=== PATIENT | male | born 1940 | race Caucasian/White ===

== ENCOUNTER → 2018-03-16 | Outpatient (CLI) | payer MEDICARE ==
--- NOTE | 2018-03-16 14:42 | US ---
EXAMINATION TYPE: US kidneys/renal and bladder DATE OF EXAM: 03/16/2018 COMPARISON: NONE CLINICAL HISTORY: N18.9 Chronic kidney disease, unspecified. EXAM MEASUREMENTS: Right Kidney: 13.1 x 5.4 x 5.3 cm Left Kidney: 13.5 x 5.2 x 4.9 cm Right Kidney: 2 cysts noted, largest measuring 1.0 x 1.0 x 1.1cm Left Kidney: ovoid shaped anechoic structure likely representing a renal sinus cyst measuring 1.7 x 1 .0 x 0.7cm Bladder: wnl There is bilateral cortical renal thinning and diminished cortical medullary differentiation. There i s no evidence for hydronephrosis at this point in time. No nephrolithiasis is seen. The urinary blad viri is anechoic. IMPRESSION: Sonographic sequela of medical renal disease with cortical renal thinning, right renal cyst and proba ble small left renal sinus cysts.
== END | disposition home or self-care (01) ==
LOC: RADUSWWP 14:04
PROVIDERS: ATTEND Family Medicine
DX: N28.1 Cyst of kidney, acquired (principal); N18.9 Chronic kidney disease, unspecified
CPT/HCPCS: 76770

== ENCOUNTER 2022-11-26 07:12 | Day surgery (SDC) | payer MEDICARE ==
[2022-11-21 16:10] VITALS: BMI 36.6
[~2022-11-26 07:12] MED LIST: ALPRAZolam 0.25 MG TAB PO PRN; ALPRAZolam 0.5 MG TAB PO PRN; ASPIRIN 325 MG TAB PO STA; NITROGLYCERIN SL TABS 0.4 MG TAB SUBLINGUAL PRN; SODIUM CHLORIDE 0.9% 1,000 ML in EMPTY BAG 1 BAG IV SCH
[2022-11-26 07:29] VITALS: RESP 18; TEMP 97.7
[2022-11-26 07:31] LABS: Glucose,Whole Blood 110 mg/dL (70-110)
[2022-11-26] MEDS ORDERED: VERAPAMIL 2.5 MG/ML 2 ML AMP ONE (09:14)
[2022-11-26] MEDS ORDERED: HEPARIN SODIUM 1,000 UN/ML (10ML VL) ONE (09:27)
[2022-11-26] MEDS ORDERED: MIDAZOLAM 2 MG/2 ML VIAL IV ONE (09:30)
[2022-11-26] MEDS ORDERED: LIDOCAINE 1% INJ 10MG/ML (5 ML VIAL-PF) SQ ONE (09:31)
[2022-11-26] MEDS ORDERED: fentaNYL (PF) 50 MCG/ML 2 ML AMP ONE (09:33)
[2022-11-26] MEDS ORDERED: VERAPAMIL SYRINGE (5 MG/10 ML) INTRAARTER ONE (09:33)
[2022-11-26] MEDS ORDERED: HEPARIN SODIUM 1,000 UN/ML (10ML VL) IV ONE (09:36)
[2022-11-26] MEDS ORDERED: fentaNYL (PF) 50 MCG/ML 2 ML AMP IV ONE (09:36)
[2022-11-26] MEDS ORDERED: IOPAMIDOL-370 100ML BTL INJ ONE (09:53)
[2022-11-26] MEDS ORDERED: RX INFO: IV CONTRAST WAS GIVEN 1 EACH MISC MISCELLANE PRN (10:16)
--- NOTE | 2022-11-26 10:24 | P.PCN ---
Date of Procedure: 11/26/22 Operative Findings: CARDIAC CATHETERIZATION PERFORMING PHYSICIAN: Clinton Villarreal MD, RPVI PROCEDURE PERFORMED: 1. Selective right and left coronary angiogram 2. Left heart catheterization INDICATION: Chest discomfort and shortness of breath in this 81-year-old gentleman with multiple risk factors who underwent a stress test and that showed an inferior ischemia COMPLICATION: None APPROACH: Right radial artery LEVEL OF SEDATION: Moderate with a sedation length of 20 minutes minutes PROCEDURE DESCRIPTION: After obtaining an informed consent, the patient was brought to cardiac rn labor and delivery. Local anesthesia was performed using lidocaine subcutaneously. The right radial artery was cannulated using Seldinger technique, the guidewire passed easily, following that we advanced a 5-[place] sheath dilator assembly, the wire and dilator were removed and sheath was flushed. Following that, 2 mg of verapamil along with 5000 unit heparin were given. Selective right and left coronary angiogram using a 6-[place] JR4 and JL 3.0 catheters. Following that we did left heart catheterization using 6-[place] pigtail catheter. The procedure was completed there was no complication. SELECTIVE CORONARY ANGIOGRAM: The right coronary artery: Large-caliber vessel and a dominant vessel. The RCA appeared to be chronically occluded in the midportion and fills by ipsilateral and contralateral collateral Left main: Calcified was mild disease only. Bifurcates into an LCx and LAD The left circumflex: Large caliber vessel nondominant vessel. The ostial LCx has a lesion appeared to be in the range of 50%. The LCx proximally gives rises into an OM1 which has a tubular lesion appeared to be in the range of 70-80%. The left anterior descending artery: The LAD is extremely calcified. It has an intermediate lesion in the proximal portion and then mild disease only. HEMODYNAMICS: The LVEDP was about 10 mmHg was no significant gradient across aortic valve CONCLUSION: 1. Extremely calcified right and left coronary system 2. 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 Severe disease involving the first obtuse marginal branch of the LCx 4. Intermediate disease involving the proximal LAD 5. Normal left-sided filling pressures POSTPROCEDURE MANAGEMENT: In the light of limited amount of contrast I would advise medical treatment at this point and consider PCI of the RCA and LCx with possible FFR of the LAD down the line.
[2022-11-26] MEDS ORDERED: SODIUM CHLORIDE 0.9% 1,000 ML IV SCH (10:30)
[2022-11-26 13:35] VITALS: BP 128/59; PULSE 58
== END 2022-11-26 13:37 | disposition home or self-care (01) ==
LOC: CATHCVL 07:12
PROVIDERS: ATTEND Internal Medicine Interventional Cardiology
DX: I25.10 Atherosclerotic heart disease of native coronary artery without angina pectoris (principal); I25.82 Chronic total occlusion of coronary artery; I10 Essential (primary) hypertension; I45.10 Unspecified right bundle-branch block; E78.5 Hyperlipidemia, unspecified; Z82.49 Family history of ischemic heart disease and other diseases of the circulatory system; Z79.82 Long term (current) use of aspirin; Z79.899 Other long term (current) drug therapy; Z79.84 Long term (current) use of oral hypoglycemic drugs
CPT/HCPCS: 93458; 99152; C1769; C1894; C1887; J2250; J2001; J3010; J1644; Q9967

== ENCOUNTER 2023-01-30 13:24 | Emergency (ER) | payer MEDICARE ==
[2023-01-30 13:35] VITALS: TEMP 97.8
[2023-01-30] MEDS ORDERED: SODIUM CHLORIDE 0.9% 500 ML 500 ML IV STA ×2 (13:39→13:59)
--- NOTE | 2023-01-30 13:44 | ED ---
General Adult HPI - General Chief complaint: Dizziness Stated complaint: dizziness Time Seen by Provider: 01/30/23 13:29 Source: patient, EMS, RN notes reviewed Mode of arrival: EMS Limitations: no limitations - History of Present Illness Initial comments: Patient is a pleasant 82-year-old male presenting to the emergency department with concerns with lightheadedness. Onset of symptoms was prior to arrival. Patient felt very lightheaded when he was sitting down. Patient states last around 10 minutes. No loss of consciousness. No spinning type sensation. No confusion. No weakness. No history of similar symptoms previously. Patient states symptoms have essentially resolved and he feels normal at this time. - Related Data Home Medications Medication Instructions Recorded Confirmed Aspirin 81 mg PO HS 03/22/18 11/26/22 Ezetimibe [Zetia] 10 mg PO HS 03/22/18 11/26/22 Glimepiride [Amaryl] 1 mg PO AC-BRKFST 03/22/18 11/26/22 Tamsulosin [Flomax] 0.4 mg PO BID 03/22/18 11/26/22 Isosorbide Mononitrate ER [Imdur] 30 mg PO DAILY 11/21/22 11/26/22 Meloxicam [Mobic] 15 mg PO HS 11/21/22 11/26/22 Metoprolol Succinate (ER) [Toprol 12.5 mg PO DAILY 11/21/22 11/26/22 Xl] Allergies Allergy/AdvReac Type Severity Reaction Status Date / Time Ikieavd-DPU-FnF Reductase Allergy Anaphylaxis Verified 11/26/22 07:22 Inhibitor [Khikqoy-Ihv-Alz Reductase Inhibitor] Review of Systems ROS Statement: Those systems with pertinent positive or pertinent negative responses have been documented in the HPI. ROS Other: All systems not noted in ROS Statement are negative. Constitutional: Denies: fever Eyes: Denies: eye pain ENT: Denies: ear pain Respiratory: Denies: cough, dyspnea Cardiovascular: Denies: chest pain Endocrine: Denies: fatigue Gastrointestinal: Denies: abdominal pain Genitourinary: Denies: dysuria Musculoskeletal: Denies: back pain Neurological: Denies: headache, weakness, confusion Past Medical History Past Medical History: Cancer, Chest Pain / Angina, Diabetes Mellitus, Hyperlipidemia Additional Past Medical History / Comment(s): basal cell skin cancer, hx of back pain with injections, covid may 2022, sob with exertion, See Cardiology H & P. History of Any Multi-Drug Resistant Organisms: None Reported Past Surgical History: Cholecystectomy, Joint Replacement, Orthopedic Surgery, Tonsillectomy Additional Past Surgical History / Comment(s): Carpal tunnel release liss., total right hip Past Anesthesia/Blood Transfusion Reactions: No Reported Reaction Past Psychological History: No Psychological Hx Reported Smoking Status: Never smoker Past Alcohol Use History: None Reported Past Drug Use History: None Reported - Past Family History Mother Family Medical History: Cancer Additional Family Medical History / Comment(s): bone cancer Brother(s) Family Medical History: Cancer Sister(s) Family Medical History: Cancer General Exam Limitations: no limitations General appearance: alert, in no apparent distress Head exam: Present: atraumatic Eye exam: Present: normal appearance, PERRL, EOMI ENT exam: Present: normal oropharynx Neck exam: Present: normal inspection Respiratory exam: Present: normal lung sounds bilaterally Cardiovascular Exam: Present: regular rate, normal rhythm GI/Abdominal exam: Present: soft. Absent: tenderness Extremities exam: Present: normal inspection. Absent: pedal edema, calf tenderness Neurological exam: Present: alert, oriented X3, CN II-XII intact. Absent: motor sensory deficit Expanded Neurological exam: Present: protecting the airway Speech: Present: fluid speech Cranial nerves: EOM's Intact: Normal Sensory exam: Upper Extremity Light Touch: Normal, Lower Extremity Light Touch: Normal Motor strength exam: RUE: 5, LUE: 5, RLE: 5, LLE: 5 Eye Response: (4) open spontaneously Motor Response: (6) obeys commands Verbal Response: (5) oriented Psychiatric exam: Present: normal affect, normal mood Skin exam: Present: normal color Course Vital Signs 01/30/23 01/30/23 13:29 13:58 Temperature 97.8 F Pulse Rate 54 L Respiratory 20 Rate Blood Pressure 144/64 Blood Pressure 140/82 [Right Arm Sitting] Blood Pressure 133/62 [Right Arm Standing] Blood Pressure 155/70 [Right Arm Supine] O2 Sat by Pulse 94 L Oximetry EKG Findings - EKG Results: EKG: interpreted by ERMD (Left axis. Right bundle branch block.), sinus rhythm, normal ST/T Medical Decision Making - Medical Decision Making Was pt. sent in by a medical professional or institution (JODIE Mejia, [employer], urgent care, hospital, or detention...) When possible be specific @ -No Did you speak to anyone other than the patient for history (EMS, parent, family, police, friend...)? What history was obtained from this source @ -No Did you review nursing and triage notes (agree or disagree)? Why? @ -I reviewed and agree with nursing and triage notes Were old charts reviewed (outside hosp., previous admission, EMS record, old EKG, old radiological studies, urgent care reports/EKG's, detention records)? Report findings @ -No old charts were reviewed Differential Diagnosis (chest pain, altered mental status, abdominal pain women, abdominal pain men, vaginal bleeding, weakness, fever, dyspnea, syncope, headache, dizziness, GI bleed, back pain, seizure, CVA, palpatations, mental health, musculoskeletal)? @ -Differential Dizziness: Benign paroxysmal positional Vertigo, Menieres disease, otitis media, acoustic neuroma, vertebrobasilar insufficiency, cerebellar stroke, encephalitis, hypovolemic, arrhythmia, coronary artery syndrome, anemia, this is not meant to be an all-inclusive list EKG interpreted by me (3pts min.). @ -As above X-rays interpreted by me (1pt min.). @ -Chest x-ray shows no acute process CT interpreted by me (1pt min.). @ -None done U/S interpreted by me (1pt. min.). @ -None done What testing was considered but not performed or refused? (CT, X-rays, U/S, labs)? Why? @ -None What meds were considered but not given or refused? Why? @ -None Did you discuss the management of the patient with other professionals (professionals i.e. JODIE Mejia, [employer]ING [employer], lab, RT, psych nurse, transition social worker, school child care attendant, teacher, chief communications officer, director of casework services)? Give summary @ -No Was smoking cessation discussed for >3mins.? @ -No Was critical care preformed (if so, how long)? @ -No Were there social determinants of health that impacted care today? How? (Homelessness, low income, unemployed, alcoholism, drug addiction, transportation, low edu. Level, literacy, decrease access to med. care, snf, rehab)? @ -No Was there de-escalation of care discussed even if they declined (Discuss DNR or withdrawal of care, Hospice)? DNR status @ -No What co-morbidities impacted this encounter? (DM, HTN, Smoking, COPD, CAD, Cancer, CVA, ARF, Chemo, Hep., AIDS, mental health diagnosis, sleep apnea, morbid obesity)? @ -None Was patient admitted / discharged? Hospital course, mention meds given and route, prescriptions, significant lab abnormalities, going to OR and other perti nent info. @ -Patient reevaluated and feeling much better. Patient was able to stand up without symptoms. Orthostatics were positive. Patient and family updated on results and need for follow-up. Patient is comfortable discharge home. Family does have patient does have history of chronic kidney disease and they're agreeable to follow-up with her doctor regarding follow-up labs Undiagnosed new problem with uncertain prognosis? @ -No Drug Therapy requiring intensive monitoring for toxicity (Heparin, Nitro, Insulin, Cardizem)? @ -No Were any procedures done? @ -No Diagnosis/symptom? @ -Lightheadedness Acute, or Chronic, or Acute on Chronic? @ -Acute Uncomplicated (without systemic symptoms) or Complicated (systemic symptoms)? @ -default Side effects of treatment? @ -No Exacerbation, Progression, or Severe Exacerbation? @ -No Poses a threat to life or bodily function? How? (Chest pain, [place], [place], pneumonia, PE, COPD, DKA, ARF, appy, cholecystitis, CVA, Diverticulitis, Homicidal, Suicidal, threat to staff... and all critical care pts) @ -No - Lab Data Result diagrams: 01/30/23 13:45 01/30/23 13:45 Lab Results 01/30/23 01/30/23 01/30/23 Range/Units 13:45 13:45 13:45 WBC 8.5 (3.8-10.6) k/uL RBC 5.28 (4.30-5.90) m/uL Hgb 14.7 (13.0-17.5) gm/dL Hct 44.5 (39.0-53.0) % MCV 84.2 (80.0-100.0) fL MCH 27.7 (25.0-35.0) pg MCHC 33.0 (31.0-37.0) g/dL RDW 14.7 (11.5-15.5) % Plt Count 250 (150-450) k/uL MPV 8.2 Neutrophils % 73 % Lymphocytes % 16 % Monocytes % 7 % Eosinophils % 3 % Basophils % 0 % Neutrophils # 6.2 (1.3-7.7) k/uL Lymphocytes # 1.3 (1.0-4.8) k/uL Monocytes # 0.6 (0-1.0) k/uL Eosinophils # 0.3 (0-0.7) k/uL Basophils # 0.0 (0-0.2) k/uL PT 9.7 (9.0-12.0) sec INR 0.9 (<1.2) APTT 18.6 L (22.0-30.0) sec Sodium 135 L (137-145) mmol/L Potassium 4.9 (3.5-5.1) mmol/L Chloride 105 (98-107) mmol/L Carbon Dioxide 21 L (22-30) mmol/L Anion Gap 9 mmol/L BUN 32 H (9-20) mg/dL Creatinine 2.16 H (0.66-1.25) mg/dL Est GFR (CKD-EPI)AfAm 32 (>60 ml/min/1.73 sqM) Est GFR (CKD-EPI)NonAf 28 (>60 ml/min/1.73 sqM) Glucose 184 H (74-99) mg/dL Plasma Lactic Acid Wm (0.7-2.0) mmol/L Calcium 8.6 (8.4-10.2) mg/dL Magnesium 2.1 (1.6-2.3) mg/dL Total Bilirubin 0.6 (0.2-1.3) mg/dL AST 26 (17-59) U/L ALT 16 (4-49) U/L Alkaline Phosphatase 92 (38-126) U/L Troponin I (0.000-0.034) ng/mL Total Protein 6.6 (6.3-8.2) g/dL Albumin 3.7 (3.5-5.0) g/dL 01/30/23 01/30/23 Range/Units 13:45 13:45 WBC (3.8-10.6) k/uL RBC (4.30-5.90) m/uL Hgb (13.0-17.5) gm/dL Hct (39.0-53.0) % MCV (80.0-100.0) fL MCH (25.0-35.0) pg MCHC (31.0-37.0) g/dL RDW (11.5-15.5) % Plt Count (150-450) k/uL MPV Neutrophils % % Lymphocytes % % Monocytes % % Eosinophils % % Basophils % % Neutrophils # (1.3-7.7) k/uL Lymphocytes # (1.0-4.8) k/uL Monocytes # (0-1.0) k/uL Eosinophils # (0-0.7) k/uL Basophils # (0-0.2) k/uL PT (9.0-12.0) sec INR (<1.2) APTT (22.0-30.0) sec Sodium (137-145) mmol/L Potassium (3.5-5.1) mmol/L Chloride (98-107) mmol/L Carbon Dioxide (22-30) mmol/L Anion Gap mmol/L BUN (9-20) mg/dL Creatinine (0.66-1.25) mg/dL Est GFR (CKD-EPI)AfAm (>60 ml/min/1.73 sqM) Est GFR (CKD-EPI)NonAf (>60 ml/min/1.73 sqM) Glucose (74-99) mg/dL Plasma Lactic Acid Wm 1.9 (0.7-2.0) mmol/L Calcium (8.4-10.2) mg/dL Magnesium (1.6-2.3) mg/dL Total Bilirubin (0.2-1.3) mg/dL AST (17-59) U/L ALT (4-49) U/L Alkaline Phosphatase (38-126) U/L Troponin I <0.012 (0.000-0.034) ng/mL Total Protein (6.3-8.2) g/dL Albumin (3.5-5.0) g/dL Disposition Clinical Impression: Lightheadedness Disposition: HOME SELF-CARE Condition: Stable Instructions (If sedation given, give patient instructions): Dizziness (ED) Additional Instructions: Please do follow-up with your primary care physician in the next day or 2 for recheck. Return for increased lightheadedness, feeling like urinary pass out, confusion or speech changes, weakness, chest pain or shortness of breath, worse bruno symptoms or other concerns Is patient prescribed a controlled substance at d/c from ED?: No Referrals: Sandra Berger MD [Primary Care Provider] - 1-2 days Time of Disposition: 15:44
[2023-01-30 14:01] LABS: Basophils % (A) 0 %; Eosinophils # (A) 0.3 k/uL (0-0.7); Eosinophils % (A) 3 %; HCT 44.5 % (39.0-53.0); HGB 14.7 gm/dL (13.0-17.5); Lymphocytes # (A) 1.3 k/uL (1.0-4.8); Lymphocytes % (A) 16 %; MCH 27.7 pg (25.0-35.0); MCV 84.2 fL (80.0-100.0); Mean Platelet Volume 8.2; Monocytes # (A) 0.6 k/uL (0-1.0); Monocytes % (A) 7 %; Neutrophils # (A) 6.2 k/uL (1.3-7.7); Neutrophils % (A) 73 %; Platelet Count 250 k/uL (150-450); RBC 5.28 m/uL (4.30-5.90); RDW 14.7 % (11.5-15.5); WBC 8.5 k/uL (3.8-10.6)
[2023-01-30 14:23] LABS: ALT 16 U/L (4-49); AST 26 U/L (17-59); African American GFR (CKD) 32 (>60 ml/min/1.73 sqM); Albumin 3.7 g/dL (3.5-5.0); Alkaline Phosphatase 92 U/L (38-126); Anion Gap 9 mmol/L; Blood Urea Nitrogen 32 mg/dL (9-20); Calcium 8.6 mg/dL (8.4-10.2); Carbon Dioxide 21 mmol/L (22-30); Chloride 105 mmol/L (98-107); Glucose 184 mg/dL (74-99); Magnesium 2.1 mg/dL (1.6-2.3); Non-African American GFR(CKD) 28 (>60 ml/min/1.73 sqM); Potassium 4.9 mmol/L (3.5-5.1); Sodium 135 mmol/L (137-145); Total Bilirubin 0.6 mg/dL (0.2-1.3); Total Protein 6.6 g/dL (6.3-8.2)
[2023-01-30 14:24] LABS: INR 0.9 (<1.2); Prothrombin Time 9.7 sec (9.0-12.0)
[2023-01-30 14:37] LABS: Partial Thromboplastin Time 18.6 sec (22.0-30.0)
--- NOTE | 2023-01-30 14:58 | XR ---
EXAMINATION TYPE: XR chest 2V DATE OF EXAM: 01/30/2023 COMPARISON: NONE TECHNIQUE: PA and lateral views submitted. HISTORY: Weakness FINDINGS: The lungs are clear and there is no pneumothorax, pleural effusion, or focal pneumonia. Heart size normal and no overt failure. Osseous structures demonstrate hypertrophic and degenerative changes of the spine. Hyperinflation suggests COPD. Mild AC joint arthropathy. Mild atherosclerotic change of th e aorta. Surgical clips in the right upper quadrant. Hyperinflation suggests COPD. IMPRESSION: 1. No acute process.
[2023-01-30 15:53] LABS: Appearance,Urine Clear (Clear); Bilirubin,Urine Negative (Negative); Blood,Urine Negative (Negative); Glucose,Urine (UA) Negative (Negative); Hyaline Casts,Urine 4 /lpf (0-2); Ketones,Urine Negative (Negative); Leukocyte Esterase,Urine Trace (Negative); Mucus,Urine Few /hpf; Nitrite,Urine Negative (Negative); Protein,Urine Trace (Negative); RBC,Urine 1 /hpf (0-5); Specific Gravity,Urine 1.024 (1.001-1.035); Urobilinogen,Urine <2.0 mg/dL (<2.0); WBC,Urine 3 /hpf (0-5)
[2023-01-30 16:10] LABS: Color,Urine Amber
[2023-01-30 16:24] VITALS: BP 119/62; PULSE 50; RESP 19
== END 2023-01-30 16:31 | disposition home or self-care (01) ==
LOC: EC 13:24
DX: R42 Dizziness and giddiness (principal); E11.9 Type 2 diabetes mellitus without complications; Z79.82 Long term (current) use of aspirin; Z79.84 Long term (current) use of oral hypoglycemic drugs; Z88.8 Allergy status to other drugs, medicaments and biological substances; Z90.49 Acquired absence of other specified parts of digestive tract
CPT/HCPCS: 36415; 71046; 80053; 81001; 83605; 83735; 84484; 85025; 85610; 85730; 93005; 96360; 96361; 99285

== ENCOUNTER 2023-02-02 16:23 | Emergency (ER) | payer MEDICARE ==
--- NOTE | 2023-02-02 16:49 | ED ---
General Adult HPI - General Chief complaint: Upper Respiratory Infection Stated complaint: upper respiratory,temp, sob Time Seen by Provider: 02/02/23 16:38 Source: patient, RN notes reviewed Mode of arrival: ambulatory Limitations: no limitations - History of Present Illness Initial comments: 82-year-old male presents emergency department chief complaint of cough and congestion 3 days. He reports that his has similar symptoms. He states that he has a low-grade fever earlier today of 99. He admits to shortness of breath but not worse than usual. Denies nausea, vomiting, diarrhea, sore throat, chest pain. - Related Data Home Medications Medication Instructions Recorded Confirmed Aspirin 81 mg PO HS 03/22/18 11/26/22 Ezetimibe [Zetia] 10 mg PO HS 03/22/18 11/26/22 Glimepiride [Amaryl] 1 mg PO AC-BRKFST 03/22/18 11/26/22 Tamsulosin [Flomax] 0.4 mg PO BID 03/22/18 11/26/22 Isosorbide Mononitrate ER [Imdur] 30 mg PO DAILY 11/21/22 11/26/22 Meloxicam [Mobic] 15 mg PO HS 11/21/22 11/26/22 Metoprolol Succinate (ER) [Toprol 12.5 mg PO DAILY 11/21/22 11/26/22 Xl] Previous Rx's Medication Instructions Recorded Benzonatate [Tessalon Perles] 100 mg PO TID PRN #15 capsule 02/02/23 Allergies Allergy/AdvReac Type Severity Reaction Status Date / Time Ryyarli-GUQ-FtQ Reductase Allergy Anaphylaxis Verified 02/02/23 16:36 Inhibitor [Cqrqgmy-Eqf-Tnq Reductase Inhibitor] Review of Systems ROS Statement: Those systems with pertinent positive or pertinent negative responses have been documented in the HPI. ROS Other: All systems not noted in ROS Statement are negative. Past Medical History Past Medical History: Cancer, Chest Pain / Angina, Diabetes Mellitus, Hyperlipidemia Additional Past Medical History / Comment(s): basal cell skin cancer, hx of back pain with injections, covid may 2022, sob with exertion, See Cardiology H & P. History of Any Multi-Drug Resistant Organisms: None Reported Past Surgical History: Cholecystectomy, Joint Replacement, Orthopedic Surgery, Tonsillectomy Additional Past Surgical History / Comment(s): Carpal tunnel release liss., total right hip Past Anesthesia/Blood Transfusion Reactions: No Reported Reaction Past Psychological History: No Psychological Hx Reported Smoking Status: Never smoker Past Alcohol Use History: None Reported Past Drug Use History: None Reported - Past Family History Mother Family Medical History: Cancer Additional Family Medical History / Comment(s): bone cancer Brother(s) Family Medical History: Cancer Sister(s) Family Medical History: Cancer General Exam Limitations: no limitations General appearance: alert, in no apparent distress Head exam: Present: atraumatic, normocephalic, normal inspection Eye exam: Present: normal appearance, PERRL, EOMI. Absent: scleral icterus, conjunctival injection, periorbital swelling ENT exam: Present: normal exam, mucous membranes moist, TM's normal bilaterally, normal external ear exam Neck exam: Present: normal inspection. Absent: tenderness, meningismus, lymphadenopathy Respiratory exam: Present: normal lung sounds bilaterally. Absent: respiratory distress, wheezes, rales, rhonchi, stridor Cardiovascular Exam: Present: regular rate, normal rhythm, normal heart sounds. Absent: systolic murmur, diastolic murmur, rubs, gallop, clicks GI/Abdominal exam: Present: soft, normal bowel sounds. Absent: distended, tenderness, guarding, rebound, rigid Extremities exam: Present: normal inspection Back exam: Present: normal inspection Neurological exam: Present: alert, oriented X3, CN II-XII intact Psychiatric exam: Present: normal affect, normal mood Skin exam: Present: warm, dry, intact, normal color. Absent: rash Course Vital Signs 02/02/23 02/02/23 02/02/23 16:34 17:30 17:35 Temperature 98.1 F 98.5 F Pulse Rate 77 66 Respiratory 20 18 18 Rate Blood Pressure 147/57 163/71 O2 Sat by Pulse 95 93 L Oximetry 02/02/23 02/02/23 18:20 19:01 Temperature 98.1 F 98.2 F Pulse Rate 61 68 Respiratory 18 20 Rate Blood Pressure 144/70 157/82 O2 Sat by Pulse 94 L 95 Oximetry Medical Decision Making - Medical Decision Making Was pt. sent in by a medical professional or institution (, PA, [employer]INEER, urgent care, hospital, or fdc...) When possible be specific @ -No Did you speak to anyone other than the patient for history (EMS, parent, family, police, friend...)? What history was obtained from this source @ -No Did you review nursing and triage notes (agree or disagree)? Why? @ -I reviewed and agree with nursing and triage notes Were old charts reviewed (outside hosp., previous admission, EMS record, old EKG, old radiological studies, urgent care reports/EKG's, fdc records)? Report findings @ -No old charts were reviewed Differential Diagnosis (chest pain, altered mental status, abdominal pain women, abdominal pain men, vaginal bleeding, weakness, fever, dyspnea, syncope, headache, dizziness, GI bleed, back pain, seizure, CVA, palpatations, mental health, musculoskeletal)? @ -Viral URI, sinusitis, bronchitis, Covid, influenza, RSV, this list is not all-inclusive EKG interpreted by me (3pts min.). @ -None X-rays interpreted by me (1pt min.). @ -Chest x-ray obtained showed no evidence for acute infiltrate CT interpreted by me (1pt min.). @ -None U/S interpreted by me (1pt. min.). @ -None done What testing was considered but not performed or refused? (CT, X-rays, U/S, labs)? Why? @ -None What meds were considered but not given or refused? Why? @ -None Did you discuss the management of the patient with other professionals (professionals i.e. , PA, [employer]ROLE[employer] ENGINEER, lab, RT, psych nurse, psychotherapist social worker, stoper, teacher, contact officer, rehabilitation caseworker)? Give summary @ -No Was smoking cessation discussed for >3mins.? @ -No Was critical care preformed (if so, how long)? @ -No Were there social determinants of health that impacted care today? How? (Homelessness, low income, unemployed, alcoholism, drug addiction, transportation, low edu. Level, literacy, decrease access to med. care, correction, rehab)? @ -No Was there de-escalation of care discussed even if they declined (Discuss DNR or withdrawal of care, Hospice)? DNR status @ -No What co-morbidities impacted this encounter? (DM, HTN, Smoking, COPD, CAD, Cancer, CVA, ARF, Chemo, Hep., AIDS, mental health diagnosis, sleep apnea, morbid obesity)? @ -None Was patient admitted / discharged? Hospital course, mention meds given and route, prescriptions, significant lab abnormalities, going to OR and other pertinent info. @ -Discharge. Patient presented to emergency department chief complaint of cough and congestion 3 days he states his has been experiencing the same symptoms. Patient tested for Covid, influenza, RSV negative. Chest x-ray obtained which show no evidence of acute process, COPD changes. Discussed these findings with patient. Patient stable at time of discharge. Case discussed with my attending, Dr. Cancino Undiagnosed new problem with uncertain prognosis? @ -No Drug Therapy requiring intensive monitoring for toxicity (Heparin, Nitro, Insulin, Cardizem)? @ -No Were any procedures done? @ -No Diagnosis/symptom? @ -viral URI Acute, or Chronic, or Acute on Chronic? @ -acute Uncomplicated (without systemic symptoms) or Complicated (systemic symptoms)? @ -uncomplicated Side effects of treatment? @ -No Exacerbation, Progression, or Severe Exacerbation? @ -No Poses a threat to life or bodily function? How? (Chest pain, [place], [place], pneumonia, PE, COPD, DKA, ARF, appy, cholecystitis, CVA, Diverticulitis, Homicidal, Suicidal, threat to staff... and all critical care pts) @ -No - Lab Data Lab Results 02/02/23 Range/Units 17:33 Influenza Type A (PCR) Not Detected (Not Detectd) Influenza Type B (PCR) Not Detected (Not Detectd) RSV (PCR) Not Detected (Not Detectd) SARS-CoV-2 (PCR) Not Detected (Not Detectd) Disposition Clinical Impression: Upper respiratory tract infection Disposition: HOME SELF-CARE Condition: Stable Instructions (If sedation given, give patient instructions): Upper Respiratory Infection (ED) Additional Instructions: Please follow up with your primary care provider. Return to the emergency department for new or worsening symptoms. Prescriptions: Benzonatate [Tessalon Perles] 100 mg PO TID PRN #15 capsule PRN Reason: Cough Is patient prescribed a controlled substance at d/c from ED?: No Referrals: Sadnra Berger MD [Primary Care Provider] - 1-2 days Time of Disposition: 19:00
--- NOTE | 2023-02-02 17:28 | XR ---
EXAMINATION TYPE: XR chest 2V DATE OF EXAM: 02/02/2023 5:24 PM COMPARISON: Chest radiographs from 01/30/2023 TECHNIQUE: XR chest 2V Frontal and lateral views of the chest. CLINICAL INDICATION:Male, 82 years old with history of cough; FINDINGS: Lungs/Pleura: There is flattening of the diaphragm with increased lucency of the lungs. No evidence o f pneumothorax, pleural effusion or focal consolidation. Pulmonary vascularity: Unremarkable. Heart/mediastinum: Cardiomediastinal silhouette is unremarkable. Musculoskeletal: No acute osseous pathology. IMPRESSION: 1. No acute cardiopulmonary disease process. 2. COPD changes.
[2023-02-02 18:59] VITALS: RESP 20
[2023-02-02 19:02] VITALS: BP 157/82; PULSE 68; TEMP 98.2
== END 2023-02-02 19:05 | disposition home or self-care (01) ==
LOC: EC 16:23
DX: J06.9 Acute upper respiratory infection, unspecified (principal); E11.9 Type 2 diabetes mellitus without complications; Z20.822 Contact with and (suspected) exposure to COVID-19; Z79.84 Long term (current) use of oral hypoglycemic drugs; Z79.82 Long term (current) use of aspirin; Z79.899 Other long term (current) drug therapy; Z88.8 Allergy status to other drugs, medicaments and biological substances; Z90.49 Acquired absence of other specified parts of digestive tract; Z86.16 Personal history of COVID-19
CPT/HCPCS: 71046; 87636; 99285